=== PATIENT | female | born 1995 | race American Indian/Alaskan Native ===

== ENCOUNTER 2019-08-03 04:02 | Emergency (ER) | payer MEDICAID ==
[2019-08-03 04:15] VITALS: BP 122/63
[2019-08-03] MEDS ORDERED: diphenhydrAMINE 25 MG CAP PO ONE (04:38)
[2019-08-03] MEDS ORDERED: IBUPROFEN 800 MG TAB PO ONE (04:38)
[2019-08-03] MEDS ORDERED: FAMOTIDINE 20 MG TAB PO ONE (04:38)
[2019-08-03] MEDS ORDERED: predniSONE 20 MG TAB PO ONE (04:38)
--- NOTE | 2019-08-03 05:07 | Emergency Department Report ---
HPI - General Chief Complaint: Allergic Reaction Time Seen by Provider: 08/03/19 04:37 - HPI HPI: pt is a 24 y/o aaf with hx of anxiety, on lorazepam. Who presents for allergic reaction , states shes started to itching and red papular rash to bilat extrem , pt denies sob ,no wheezing, no stridor, no n/v no dizziness, no light headedness. pt has hx same some yrs ago but can't remember trigger. ED Past Medical Hx - Past Medical History Previous Medical History?: Yes Hx Psychiatric Treatment: Yes (Anxiety) - Surgical History Past Surgical History?: No - Social History Smoking Status: Never Smoker Substance Use Type: None - Medications Home Medications: Home Medications Medication Instructions Recorded Confirmed Last Taken Type Famotidine [Pepcid] 20 mg PO BID 7 Days #14 tablet 08/03/19 Unknown Rx Ibuprofen [Motrin 800 MG tab] 800 mg PO Q8HR PRN #30 tablet 08/03/19 Unknown Rx diphenhydrAMINE [Benadryl CAP] 25 mg PO Q8HR PRN #30 capsule 08/03/19 Unknown Rx predniSONE [Deltasone] 40 mg PO DAILY 5 Days #10 tablet 08/03/19 Unknown Rx ED Review of Systems ROS: Stated complaint: ALLERGIC REACTION Other details as noted in HPI Constitutional: denies: chills, fever Eyes: denies: eye pain, eye discharge, vision change ENT: denies: ear pain, throat pain Respiratory: denies: cough, shortness of breath, wheezing Cardiovascular: denies: chest pain, palpitations Endocrine: no symptoms reported Gastrointestinal: denies: abdominal pain, nausea, diarrhea Genitourinary: denies: urgency, dysuria, discharge Musculoskeletal: denies: back pain, joint swelling, arthralgia Skin: rash (bilat extrem ). denies: lesions Neurological: denies: headache, weakness, paresthesias Psychiatric: denies: anxiety, depression Hematological/Lymphatic: denies: easy bleeding, easy bruising Physical Exam - Physical Exam Vital Signs: Vital Signs 08/03/19 08/03/19 04:11 04:48 Temperature 97.9 F Pulse Rate 84 Respiratory 20 18 Rate Blood Pressure 122/63 O2 Sat by Pulse 100 Oximetry General: pt appears nontox, resp even non labored, lung sounds clear bilat no stidor no wheezing, rash: small papules, erythema, urticaria, no hives, no open sores, no weeping, ED Course Vital Signs 08/03/19 08/03/19 04:11 04:48 Temperature 97.9 F Pulse Rate 84 Respiratory 20 18 Rate Blood Pressure 122/63 O2 Sat by Pulse 100 Oximetry ED Medical Decision Making - Medical Decision Making This is contact dermatitis. plan: prednisone, benadryl, pepcid, follow up with pcp in 2-3 days, return to ed if symptoms worsen. pt verbalized agreement and understanding of discharge plan. will be dc'd to home in stable condition at this time. Critical care attestation.: If time is entered above; I have spent that time in minutes in the direct care of this critically ill patient, excluding procedure time. ED Disposition Clinical Impression: Allergic reaction Qualifiers: Encounter type: initial encounter Qualified Code(s): T78.40XA - Allergy, unspecified, initial encounter Contact dermatitis Qualifiers: Contact dermatitis type: allergic Contact dermatitis trigger: unspecified trigger Qualified Code(s): L23.9 - Allergic contact dermatitis, unspecified cause Disposition: DC-01 TO HOME OR SELFCARE Is pt being admited?: No Does the pt Need Aspirin: No Condition: Stable Instructions: Allergies (ED), Urticaria (ED), Contact Dermatitis (ED) Prescriptions: diphenhydrAMINE [Benadryl CAP] 25 mg PO Q8HR PRN #30 capsule PRN Reason: allergies predniSONE [Deltasone] 40 mg PO DAILY 5 Days #10 tablet Ibuprofen [Motrin 800 MG tab] 800 mg PO Q8HR PRN #30 tablet PRN Reason: pain Famotidine [Pepcid] 20 mg PO BID 7 Days #14 tablet Referrals: PRIMARY CARE,MD [Primary Care Provider] - 3-5 Days [facility] [Outside] - 3-5 Days Forms: Work/School Release Form(ED) Time of Disposition: 05:15
== END 2019-08-03 05:20 | disposition home or self-care (01) ==
LOC: ED 04:02
DX: T78.40XA Allergy, unspecified, initial encounter (principal); F41.9 Anxiety disorder, unspecified; X58.XXXA Exposure to other specified factors, initial encounter
CPT/HCPCS: 99282; J7512